=== PATIENT | male | born 1980 ===

== ENCOUNTER 2019-09-15 18:37 | Emergency (ER) | payer BC, SELFPAY ==
[2019-09-15 19:56] VITALS: BP 139/83; PULSE 90; RESP 16; TEMP 37.4; O2SAT 98; BMI 25.1
[2019-09-15 20:43] LABS: Basophils % 0.2 %; Eosinophils # 0.1 10^3/uL (0.0-0.8); Eosinophils % 0.5 %; Hematocrit 41.6 % (42.0-52.0); Hemoglobin 14.5 g/dL (11.7-16.6); Lymphocytes # 1.4 10^3/uL (0.8-4.8); Lymphocytes % 7.1 %; Mean Corpuscular HGB Conc 34.9 g/dL (30.0-36.0); Mean Corpuscular Hemoglobin 30.9 pg (28.0-34.0); Mean Corpuscular Volume 88.5 fL (80-94); Mean Platelet Volume 9.7 fL (7.4-10.4); Monocytes # 0.9 10^3/uL (0.2-0.9); Monocytes % 4.5 %; Neutrophils # 17.5 10^3/uL (1.8-7.7); Nucleated Red Blood Cells % 0 %; Platelet Count 246 10^3/cmm (130-400); Red Cell Distribution Width 14.5 % (12.1-15.1); White Blood Count 20.1 10^3/uL (4.0-10.0)
[2019-09-15 20:59] LABS: Alanine Aminotransferase 14 U/L (0-41); Albumin Level 4.5 g/dL (3.5-5.2); Alkaline Phosphatase 105 IU/L (40-130); Anion Gap 16.6 (5-19); Aspartate Amino Transferase 17 U/L (0-40); Blood Urea Nitrogen 9 mg/dL (6-20); Calcium 9.6 mg/Dl (8.6-10.0); Carbon Dioxide 26 mmol/L (22-29); Chloride 101 mmol/L (98-107); Globulin 2.9 g/dL (1.3-4.6); Glomerular Filtration Rate 74.5 mL/min (90-130); Glucose 102 mg/dL (74-109); Potassium 3.6 mmol/L (3.5-5.1); Sodium 140 mmol/L (136-145); Total Bilirubin 1.4 mg/dL (0.15-1.2); Total Protein 7.4 g/dL (6.6-8.7)
--- NOTE | 2019-09-16 00:42 | W.ED.GENADLT ---
HPI - General Adult General: Chief complaint: General Medical Stated complaint: fever/back pain Time Seen by Provider: 09/16/19 00:42 History of Present Illness: HPI narrative: Patient is a 39-year-old male comes into the ED with fever and right lower back pain. Patient has a past medical history of Crohn's disease. He says the fever with chills started around 11:00am today. the back pain has been occurring for over a week now. He is unsure if these 2 symptoms are related or not, but he says about 15 years ago he had similar back pain may found out he had Colon. He Rates the Back Pain Is 5 Out Of 10. Patient has chronic diarrhea with his Crohn's diagnosis. He's states his diarrhea has been unchanged and is normal. Denies any chest pain, shortness of breath, cough, nasal congestion or drainage, headache, abdominal pain, dysuria, hematuria, blood in the stool, constipation, numbness or tingling or weakness to extremities. Review of Systems General: Reports: 10 or more systems reviewed and unremarkable except in HPI and below PFSH ED PFSH: Statuses (acute, chronic, etc) shown below reflect problem list status as previously entered and may not be historically accurate Medical History Crohn's disease (Acute) Surgical History History of bowel resection (Acute) Social History Smoking and tobacco status: former smoker Physical Exam Narrative: EXAM NARRATIVE: Patient is a 39-year-old male who appears comfortable upon examination. He does not appear in any acute pain or distress. Const: COMMON NORMALS: oriented x3 HENMT: COMMON NORMALS: normocephalic HEAD & SCALP: normocephalic MOUTH: oral and palatal mucosa normal THROAT: posterior oropharynx normal and uvula midline Neck/C-Spine: COMMON NORMALS: supple GENERAL: Yes normal visual inspection Resp: COMMON NORMALS: normal respiratory effort, no retractions, no use of accessory muscles and clear to auscultation bilaterally AUSCULTATION: clear to auscultation bilaterally Cardio: COMMON NORMALS: regular rate, regular rhythm, S1 normal heart sound, S2 normal heart sound, no gallops, no clicks, no murmurs and peripheral pulses 2+ throughout RATE: regular rate RHYTHM: regular rhythm HEART SOUNDS: S1 normal and S2 normal PERIPHERAL PULSES: pulses 2+ throughout GI: COMMON NORMALS: normal to inspection, nondistended, normoactive bowel sounds, soft to palpation, non-tender and no masses PALPATION: Yes soft : COMMON NORMALS: Yes no CVA tenderness BLADDER/KIDNEY EXAM: Yes no CVA tenderness Back/Pelvis: COMMON NORMALS: no CVA tenderness LUMBAR SPINE/LOWER BACK: Yes paraspinal muscle tenderness (mild) Lumbar paraspinal muscle tenderness: right Neuro: COMMON NORMALS: oriented x3 and moves all extremities Course Vital Signs: Vital signs: Vital Signs Temperature 99.4 F 09/15/19 19:56 Pulse Rate 90 09/15/19 19:56 Respiratory Rate 16 09/15/19 19:56 Blood Pressure 139/83 09/15/19 19:56 Pulse Oximetry 98 09/15/19 19:56 [facility] - General Adult Lab Data: Labs: Lab Results 09/15/19 09/15/19 09/16/19 Range/Units 20:20 20:20 01:08 WBC 20.1 H (4.0-10.0) 10^3/ uL RBC 4.70 (4.1-5.3) 10^6/u L Hgb 14.5 (11.7-16.6) g/dL Hct 41.6 L (42.0-52.0) % MCV 88.5 (80-94) fL MCH 30.9 (28.0-34.0) pg MCHC 34.9 (30.0-36.0) g/dL RDW 14.5 (12.1-15.1) % Plt Count 246 (130-400) 10^3/c mm MPV 9.7 (7.4-10.4) fL Neut % (Auto) 87.0 % Lymph % (Auto) 7.1 % [place] % (Auto) 4.5 % Eos % (Auto) 0.5 % Baso % (Auto) 0.2 % Neut # (Auto) 17.5 H (1.8-7.7) 10^3/u L Lymph # (Auto) 1.4 (0.8-4.8) 10^3/u L [place] # (Auto) 0.9 (0.2-0.9) 10^3/u L Eos # (Auto) 0.1 (0.0-0.8) 10^3/u L Baso # (Auto) 0.0 (0.0-0.1) 10^3/u L Nucleated RBC % (a uto) 0 % Nucleated RBCs # 0.0 /100WBC Sodium 140 (136-145) mmol/L Potassium 3.6 (3.5-5.1) mmol/L Chloride 101 (98-107) mmol/L Carbon Dioxide 26 (22-29) mmol/L Anion Gap 16.6 (5-19) BUN 9 (6-20) mg/dL Creatinine 1.1 (0.7-1.2) mg/dL GFR Calculation 74.5 L (90-130) mL/min Glucose 102 (74-109) mg/dL Calcium 9.6 (8.6-10.0) mg/Dl Total Bilirubin 1.4 H (0.15-1.2) mg/dL AST 17 (0-40) U/L ALT 14 (0-41) U/L Alkaline Phosphata se 105 (40-130) IU/L Total Protein 7.4 (6.6-8.7) g/dL Albumin 4.5 (3.5-5.2) g/dL Globulin 2.9 (1.3-4.6) g/dL Urine Color Yellow (Yellow) Urine Appearance Clear (CLEAR) Urine pH 5 (5-7) Ur Specific Gravit y 1.015 (1.005-1.030) Urine Protein Neg (Negative) Urine Glucose (UA) Norm (Normal) Urine Ketones Negative (Negative) Urine Occult Blood Neg (Negative) Urine Nitrate Negative (Negative) Urine Bilirubin Neg (NEGATIVE) Urine Urobilinogen Norm (Negative) mg/dL Ur Leukocyte Savi ase Negative (Negative) Imaging Data^: CT Abd/Pel: Attestation: I personally reviewed and interpreted this imaging study as follows: (I reviewed the radiologist report) Radiologist's impression: [address] [address] [address] Scan Report Signed Patient: Cirilo Zhang Unit #: [id number] : 1980 Age/Sex: 39 / M ADM Date: 09/15/19 Loc: ER Room/Bed: Attending Dr: Ordering Provider/Ordering MD: Rafita Etienne Date of Service: 09/16/19 Procedure(s): CT abdomen pelvis w con* [id number] Accession Number(s): [id number] Report Number: [id number] PROCEDURE INFORMATION: Exam: CT Abdomen And Pelvis With Contrast Exam date and time: 09/16/2019 1:29 AM Age: 39 years old Clinical indication: Fever; Abdominal pain; Acute; Prior surgery; Surgery date: 6+ months; Surgery type: Small bowel resection; Patient HX: HX Crohn's; Additional info: Back pain and fever TECHNIQUE: Imaging protocol: Computed tomography of the abdomen and pelvis with intravenous contrast. Total DLP: 670.63 mGy-cm Radiation optimization: All CT scans at this facility use at least one of these dose optimization techniques: automated exposure control; mA and/or kV adjustment per patient size (includes targeted exams where dose is matched to clinical indication); or iterative reconstruction. Contrast material: OMNI 300; Contrast volume: 95 ml; Contrast route: 20G; COMPARISON: No relevant prior studies available. FINDINGS: Visualized portions of the lung bases are clear. The liver, gallbladder, spleen, pancreas, adrenal glands, and right kidney are unremarkable. Tiny hypodensity in the left kidney upper pole, statistically likely to represent a cyst. The appendix is not identified and may be surgically absent. No bowel obstruction identified. There is a short segment of marked wall thickening of the distal sigmoid colon (series 2, image 69). This is consistent with inflammatory change/colitis (such as from infection or inflammatory bowel disease). No free intraperitoneal air or fluid identified. The bladder is unremarkable. The abdominal aorta is nonaneurysmal. Visualized bones are unremarkable. CT/CT abdomen pelvis w con* [id number] IMPRESSION: 1. There is a short segment of marked wall thickening of the distal sigmoid colon. This is consistent with inflammatory change/colitis (such as from infection or inflammatory bowel disease). Radiation Dose CTDIVOL = (mGy): DLP = 670.63 (mGy-cm) Dictated By: Sloan Oquendo MD Signed By: Sloan Oquendo MD Signed Date/Time: 09/16/19 0332 DD/ 0 Discharge Plan Discharge Patient Disposition: Home, Self-Care Clinical Impression: Colitis Crohn's disease Qualifiers: Gastrointestinal tract location: large intestine Digestive disease complication type: without complication Qualified Code(s): K50.10 - Crohn's disease of large intestine without complications Condition: Stable Prescriptions: New Flagyl 500 mg tablet 500 mg PO BID 10 Days Qty: 20 RF: 0 Discharge Orders: Discharge Order (Routine); Ordered 09/16/19 Ordered By: Rafita Etienne Referrals: Og Erickson MD [Family Provider] - Discharge Diet: Regular Discharge Activity: Resume usual activity Activity Restrictions/Additional Instructions: Follow-up with your primary care doctor in 5-7 days for reevaluation. I am going to send you home with a prescription for an antibiotic. You can wait to start taking antibiotic for 24 hours to see if you develop a fever or other GI symptoms. start taking it if you get a fever and have any new GI symptoms. Take Tylenol or ibuprofen for fever and for lower back pain. Drink plenty of fluids. Return to ED if worsening of symptoms and persistent fever with antibiotic treatment. Discharge Date/Time: 09/16/19 04:05 Coding Level of Care Code ED Brewery Representative for Thaddeus Connolly
[2019-09-16 01:17] LABS: Add Urine Microscopic? NO
--- NOTE | 2019-09-16 01:26 | CTR_ITS ---
PROCEDURE INFORMATION: Exam: CT Abdomen And Pelvis With Contrast Exam date and time: 09/16/2019 1:29 AM Age: 39 years old Clinical indication: Fever; Abdominal pain; Acute; Prior surgery; Surgery date: 6+ months; Surgery type: Small bowel resection; Patient HX: HX Crohn's; Additional info: Back pain and fever TECHNIQUE: Imaging protocol: Computed tomography of the abdomen and pelvis with intravenous contrast. Total DLP: 670.63 mGy-cm Radiation optimization: All CT scans at this facility use at least one of these dose optimization techniques: automated exposure control; mA and/or kV adjustment per patient size (includes targeted exams where dose is matched to clinical indication); or iterative reconstruction. Contrast material: OMNI 300; Contrast volume: 95 ml; Contrast route: 20G; COMPARISON: No relevant prior studies available. FINDINGS: Visualized portions of the lung bases are clear. The liver, gallbladder, spleen, pancreas, adrenal glands, and right kidney are unremarkable. Tiny hypodensity in the left kidney upper pole, statistically likely to represent a cyst. The appendix is not identified and may be surgically absent. No bowel obstruction identified. There is a short segment of marked wall thickening of the distal sigmoid colon (series 2, image 69). This is consistent with inflammatory change/colitis (such as from infection or inflammatory bowel disease). No free intraperitoneal air or fluid identified. The bladder is unremarkable. The abdominal aorta is nonaneurysmal. Visualized bones are unremarkable. CT/CT abdomen pelvis w con* [id number] IMPRESSION: 1. There is a short segment of marked wall thickening of the distal sigmoid colon. This is consistent with inflammatory change/colitis (such as from infection or inflammatory bowel disease). Radiation Dose CTDIVOL = (mGy): DLP = 670.63 (mGy-cm)
[2019-09-16 01:31] LABS: Bilirubin Urine Neg (NEGATIVE); Blood Urine Neg (Negative); Glucose Urine UA Norm (Normal); Ketones Urine Negative (Negative); Leukocyte Esterase Urine Negative (Negative); Nitrate Urine Negative (Negative); Protein Urine Neg (Negative); Specific Gravity, Urine 1.015 (1.005-1.030); Urine Appearance Clear (CLEAR); Urine Color Yellow (Yellow); Urobilinogen Urine Norm (Negative); pH Urine 5 (5-7)
[2019-09-16] MEDS: sodium chloride 0.9% 1,000 ML 999 ML IV (01:45)
[2019-09-16] MEDS: ketorolac 30 mg/mL INJ IVP (01:45)
== END 2019-09-16 04:05 | disposition home or self-care (01) ==
PROVIDERS: Emergency Medicine; Emergency Provider Physician Assistant; Family Provider Family Medicine
DX: K50.10 Crohn's disease of large intestine without complications (principal); K52.9 Noninfective gastroenteritis and colitis, unspecified; Z87.891 Personal history of nicotine dependence
CPT/HCPCS: 36415; 74177; 80053; 81003; 85025; 87040; 96360; 96374; 99281; J1885; J7030

== ENCOUNTER → 2020-06-05 16:55 | Outpatient (BNVA) | payer BC, SELFPAY | PROVIDERS: Family Provider Family Medicine; Visit Provider Family Medicine | DX: Z20.828 Contact with and (suspected) exposure to other viral communicable diseases (principal) | CPT/HCPCS: 87635 ==

== ENCOUNTER → 2022-06-19 14:33 | Outpatient (BNVA) | payer OTHER, SELFPAY | PROVIDERS: Family Provider Family Medicine; PCP Clinical Nurse Specialist Adult Health; Visit Provider Clinical Nurse Specialist Adult Health | DX: J02.0 Streptococcal pharyngitis (principal) | CPT/HCPCS: 87880 ==

== ENCOUNTER 2025-03-04 21:27 | Emergency (ER) | payer OTHER, SELFPAY ==
--- OUTSIDE RECORDS SUMMARY | 2025-02-21 05:40 | XMS_ITS ---
Author Organization [facility] Address [address] [place] [address] Care Team Providers Care Developer Advisor Name Role Phone Nakul Guardado Primary Care Provider REASON FOR VISIT 4 WEEK F/U R shoulder pain and palpitations, Discussed recent Holter with PVCs Encounters Encounter Location Date Provider Diagnosis [facility] [address] [place] [address] 02/21/2025 Nakul Guardado Plan Of Treatment Next Appt Details Provider Name:Kelvin Li , 03/08/2025 10:30:00 AM, [address], [place], [address], Provider Name:Nkaul thurman, 03/28/2025 10:30:00 AM, [address], [place], [address], Provider Name:Nakul thurman, 09/19/2025 01:00:00 PM, [address], [place], [address], Progress Notes * MANUELA GIPSON PDOB:1980 ( 44 yo M)Acc No.[id number]:02/21/2025 Patient: Eva MANUELA PETERS Provider: Oracio Guardado MD :1980 A ge:44 Y S ex:Male Date:02/21/2025 Address:[facility] [address], [place] Subjective: * Chief Complaints: * 1 . 4 WEEK F/U R shoulder pain and palpitations. 2. Discussed recent Holter with PVCs. 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
--- OUTSIDE RECORDS SUMMARY | 2025-03-04 21:32 | XMS_ITS | Clinical Summary ---
Author Organization [facility] Address [address] [place] [address] Care Team Providers Care Label Coder Name Role Phone Og Erickson MD Primary Care Provider Allergies Active Allergy Reactions Criticality Noted Date Comments Infliximab Other (See Comments) 09/07/2018 Joint pain-serum sickness Medications losartan (COZAAR) 25 mg tablet Take 25 mg by mouth daily. 12/04/2021 Active hydroCHLOROthiaz juju 25 mg tablet 11/26/2021 Ac tive amLODIPine (NORVASC) 10 mg tablet 11/26/2021 Active colestipoL (COLESTID) 1 gram tablet Take 1 Tablet (1,000 mg) by mouth daily. 60 Tablet 3 10/22/2022 Active azaTHIOprine (IMURAN) 50 mg tabletIndication s:Crohn's disease of both small and large intestine with rectal bleeding (CMS/HCC),Immuno suppression Take 1 Tablet (50 mg) by mouth daily. 30 Tablet 3 10/22/2022 Active ustekinumab (Stelara) 90 mg/mL Syringe INJECT 1 ML UNDER THE SKIN EVERY 8 WEEKS 2 Each 4 12/03/2022 Active Active Problems Problem Noted Date Diagnosed Date Crohn's disease of small intestine with other co mplication 11/13/2018 Social History Tobacco Use Types Packs/Day Years Used Date Smoking Tobacco: Former Smokeless Tobacco: Never Tobacco Cessation:Counseling Given: No Sex and Gender Information Value Date Recorded Sex Assigned at Not on file Legal Sex Male 6:18 AM MOUNTER SMOKING PIPE Gender Identity Not on file Sexual Orientation Not on file Last Filed Vital Signs Vital Sign Reading Time Taken Comments Blood Pressure 121/75 04/08/2022 2:00 PM CDT Pulse 70 04/08/2022 2:00 PM CDT Temperature 36.6 C (97.9 F) 08/12/2019 11:18 AM MOUNTER SMOKING PIPE Respiratory Rate 15 02/27/2022 3:31 PM CDT Oxygen Saturation 98% 02/27/2022 3:31 PM CDT Inhaled Oxygen Concentration - - Weight 77.6 kg (171 lb) 04/08/2022 2:00 PM CDT Height 175.3 cm (5' 9 ) 04/08/2022 2:00 PM CDT Body Mass Index 25.25 04/08/2022 2:00 PM CDT Plan of Treatment Health Maintenance Due Date Last Done Comments HEPATITIS B VACCINES (1 of 3 - 19+ 3-dose series) 1999 INFLUENZA VACCINE (#1) 2025 7, 07/11/2015, 06/06/2014 DTAP/TDAP/TD VACCINES (2 - Td or Tdap) 08/04/2027 08/04/2017 HPV VACCINES Aged Out No longer eligi ble based on patient's age to complete this topic Insurance OPEN ACCESS HMO * Guarantor: CIRILO GIPSON Account Type Relation to Patient Date of Phone Billing Address Personal/Family [address] [place] [address] RX [facility] Commercial Advance Directives For more information, please contact: [phone] * Full Code (Latest Code Status on File) Date Activated Date Inactivated Comments 02/27/2022 2:03 PM 02/27/2022 5:40 PM Care Teams Label Coder Relationship Specialty [place] [address] [place] [phone] PCP - General 11/09/20
--- OUTSIDE RECORDS SUMMARY | 2025-03-04 21:32 | XMS_ITS | Clinical Summary ---
Author Organization [facility] Address [address] [place] [address] Care Team Providers Care Turbo Generator Oiler Name Role Phone Og Erickson MD Primary Care Provider [phone] Allergies Active Allergy Reactions Criticality Noted Date Comments Infliximab Other (See Comments) 09/07/2018 Joint pain-serum sickness Medications folic acid (FOLVITE) 1 mg tablet Take 1 mg by mouth daily. Active lisinopril (PRINIVIL) 40 mg tablet . 01/04/2019 Active ustekinumab (Stelara) 90 mg/mL Syringe INJECT 1 ML UNDER THE SKIN EVERY 8 WEEKS 2 Each 4 11/06/2020 Active azaTHIOprine (IMURAN) 50 mg tabletIndication s:Crohn's disease of both small and large intestine with rectal bleeding (CMS/HCC),Immuno suppression Take 1 Tablet (50 mg) by mouth daily. 90 Tablet 3 11/14/2020 Active sucralfate (CARAFATE) 1 gram tabletIndication s:Nausea,Crohn's disease of both small and large intestine with rectal bleeding (CMS/HCC),Immuno suppression Take 1 Tablet (1 Gram) by mouth 4 times daily as needed for Nausea. 120 Tablet 6 11/14/2020 Active Active Problems Problem Noted Date Diagnosed Date Crohn's disease of small intestine with other co mplication 11/13/2018 Social History Tobacco Use Types Packs/Day Years Used Date Smoking Tobacco: Former Smokeless Tobacco: Never Tobacco Cessation:Counseling Given: No Sex and Gender Information Value Date Recorded Sex Assigned at Not on file Legal Sex Male 2:24 PM NEGATIVE RESTORER Gender Identity Not on file Sexual Orientation Not on file Last Filed Vital Signs Vital Sign Reading Time Taken Comments Blood Pressure 124/63 11/14/2020 11:09 AM CDT Pulse 68 11/14/2020 11:09 AM CDT Temperature 36.6 C (97.9 F) 08/12/2019 11:18 AM NEGATIVE RESTORER Respiratory Rate 16 08/12/2019 11:18 AM NEGATIVE RESTORER Oxygen Saturation 99% 08/12/2019 11:18 AM NEGATIVE RESTORER Inhaled Oxygen Concentration - - Weight 83.5 kg (184 lb) 11/14/2020 11:09 AM CDT Height 175.3 cm (5' 9 ) 11/14/2020 11:09 AM CDT Body Mass Index 27.17 11/14/2020 11:09 AM CDT Plan of Treatment Health Maintenance Due Date Last Done Comments HEPATITIS B VACCINES (1 of 3 - 19+ 3-dose series) 1999 INFLUENZA VACCINE (#1) 2024 9, 08/04/2017, 07/11/2015, Additional history exists DTAP/TDAP/TD VACCINES (2 - Td or Tdap) 08/04/2027 08/04/2017 HPV VACCINES Aged Out No longer eligi ble based on patient's age to complete this topic Insurance [employer] [facility] Commercial Advance Directives For more information, please contact: [phone] * Full Code (Latest Code Status on File) Date Activated Date Inactivated Comments 02/25/2019 2:37 PM 02/25/2019 5:44 PM Care Teams Turbo Generator Oiler Relationship Specialty Start Date End Date Og Erickson MD [address] [place] [address] PCP - General Family Practice 02/22/19
--- OUTSIDE RECORDS SUMMARY | 2025-03-04 21:32 | XMS_ITS | Encounter Summary ---
Author Organization [facility] [employer] Address [address] [place] [address] Care Team Providers Care Video Game Engineer Name Role Phone Og Erickson MD Primary Care Provider + [phone] Encounter Details Date Type Department Care Team (Late st Contact Info) Description 07/27/2019 Specialty Pharmacy [facility] [place] [address] [id number] Taina Andino, PHARMACIST [address] [place] [address] [phone] Social History Tobacco Use Types Packs/Day Years Used Date Smoking Tobacco: Former Smokeless Tobacco: Never Sex and Gender Information Value Date Recorded Sex Assigned at Not on file Legal Sex Male 2:24 PM INSTRUCTIONAL SUPPORT TECHNICIAN Gender Identity Not on file Sexual Orientation Not on file documented as of this encounter Plan of Treatment Not on file documented as of this encounter Visit Diagnoses Not on filedocumented in this encounter Care Teams Video Game Engineer Relationship Specialty Start Date End Date Og Erickson MD [address] [place] [phone] PCP - General Family Practice 02/22/19 documented as of this encounter
--- OUTSIDE RECORDS SUMMARY | 2025-03-04 21:32 | XMS_ITS | Patient Health Record ---
Author Organization [facility] Address [address] [place] [address] Care Team Providers Care Billposter Name Role Phone Nakul Guardado Primary Care Provider Kelvin Li Unavailable [phone] Breana oJhnson Unavailable [phone] Allergies Allergen (clinical drug ingredient) Drug/Non Drug Allergy documented on EMR Reaction Allergy Type Onset Date Status Remicade Unknown Drug Allergy Active Results Component Value Reference Range Notes Shoulder Min 3V Right-[id number] Reviewed date:01/21/2025 02:31:53 PM Interpretation: Performing Lab: Notes/Report: hfk=[id number]&org=iSite CBC w\ Auto Diff [id number] Reviewed date:04/29/2024 03:34:13 PM Interpretation: Performing Lab: Notes/Report: Diagnosis Description: Crohn's disease of small intestine without complications WBC 7.2 4.5-11.0 X10'3 RBC 4.80 4.50-5.90 X10'6 Hgb 15.0 13.5-17.5 G/DL Hct 41.0 41.0-53.0 % MCV 85.4 80.0-100.0 FL MCH 31.3 27.0-31.0 PG MCHC 36.6 31.0-37.0 G/DL Platelet 203 150-400 X10'3 RDW-SD 39.3 35.0-49.0 FL RDW-CV 12.8 12.2-15.6 % MPV 9.6 9.2-12.0 FL Neutro Auto% 48.6 40.0-70.0 % Lymph Auto% 24.2 22.0-44.0 % Swain Auto% 11.8 3.0-7.0 % Eos Auto% 14.3 2.0-4.0 % Baso Auto% 0.8 0.0-1.0 % Imm Gran% .3 .0-.4 % Neutro Abs 3.51 .80-7.70 Absolute Neutrophil Count 3510 Lymph Abs 1.75 .10-4.10 Swain Abs .85 .20-1.00 Eos Abs 1.03 .00-.40 Baso Abs .06 .00-.20 Imm Gran Abs .02 .00-.10 NRBC# .00 .00-.20 NRBC% .00 .00-.20 /100 int act WBC's Comprehensive Metabolic Pane l (CMP) [id number] Reviewed date:04/29/2024 03:34:13 PM Interpretation: Performing Lab: Notes/Report: Diagnosis Description: Crohn's disease of small intestine without complications Glucose Serum 92 71-110 MG/DL Testing perfor med at [facility], [address] [place] [address] [place] [address]. CLIA ID#: [id number] BUN 19 7-21 MG/DL Creat 1.24 .57-1.17 MG/DL K-ghksns-j-benzoquinone imine (NAPQI) is a metabolite of acetaminophen, NAPQI concentrations of apparoximately 10 mg/L correlation to toxic levels of acetaminophen demonstrates a greater than or equil to 10% change in results. NAPQI concentrations greater than this may lead to falsely depressed results for patient samples. Use of this assay is not recommended for patients undergoing treatment with phenindione, due to the potential for falsely depressed results. GFR 73.8 Calculation per formed from GFR calculator provided by the [employer]. Glomerular Filtration rate(GRF) is the best overall index of kidney function. Normal GFR varies according to age,sex, body size, and declines with age. The National Kid[employer] Foundation recommends using the CKD-EPI Creatinine Equation(2020) to estimate GFR. BUN/Creat Ratio 15.3 12.0-20.0 % Total Protein 6.8 5.8-8.0 G/DL Albumin 4.5 3.2-4.8 G/DL Globulin 2.3 2.3-3.5 G/DL Alb/Glob 2.0 0.8-2.2 Calcium 9.6 8.7-10.4 MG/DL Sodium 139 136-145 MMOL/L Potassium 3.7 3.5-5.1 MMOL/L Chloride 103 98-107 MMOL/L CO2 29.2 20.0-31.0 MMOL/L Anion Gap 10 5-15 Alk Phos 74 46-116 Bili Total 1.0 .3-1.2 MG/DL Use of this ass ay is not recommended for patients undergoing treatment with eltrombopag due to the potential for falsely elevated results. AST/SGOT 22 15-37 UNIT/L ALT/SGPT 36 12-78 UNIT/L Osmo Serum,Calculated 290 280-300 MOSM/KG CBC w\ Auto Diff [id number] Reviewed date:02/16/2025 09:50:51 AM Interpretation: Performing Lab: Notes/Report: Diagnosis Description: Crohn's disease of both small and large intestine with unspecified complications WBC 6.8 4.5-11.0 X10'3 RBC 5.18 4.50-5.90 X10'6 Hgb 15.9 13.5-17.5 G/DL Hct 43.9 41.0-53.0 % MCV 84.7 80.0-100.0 FL MCH 30.7 27.0-31.0 PG MCHC 36.2 31.0-37.0 G/DL Platelet 225 150-400 X10'3 RDW-SD 36.3 35.0-49.0 FL RDW-CV 11.8 12.2-15.6 % MPV 9.7 9.2-12.0 FL Neutro Auto% 58.8 40.0-70.0 % Lymph Auto% 25.9 22.0-44.0 % Swain Auto% 10.7 3.0-7.0 % Eos Auto% 3.7 2.0-4.0 % Baso Auto% 0.6 0.0-1.0 % Imm Gran% .3 .0-.4 % Neutro Abs 4.02 .80-7.70 Absolute Neutrophil Count 4020 Lymph Abs 1.77 .10-4.10 Swain Abs .73 .20-1.00 Eos Abs .25 .00-.40 Baso Abs .04 .00-.20 Imm Gran Abs .02 .00-.10 NRBC# .00 .00-.20 NRBC% .00 .00-.20 /100 int act WBC's Comprehensive Metabolic Pane l (CMP) [id number] Reviewed date:02/16/2025 09:50:55 AM Interpretation: Performing Lab: Notes/Report: Diagnosis Description: Crohn's disease of both small and large intestine with unspecified complications Glucose Serum 92 71-110 MG/DL Testing perfor med at [facility], [address] [place] [address] [place] [address]. CLIA ID#: [id number] BUN 18 7-21 MG/DL Creat 1.09 .57-1.17 MG/DL D-wzgyii-c-benzoquinone imine (NAPQI) is a metabolite of acetaminophen, NAPQI concentrations of apparoximately 10 mg/L correlation to toxic levels of acetaminophen demonstrates a greater than or equil to 10% change in results. NAPQI concentrations greater than this may lead to falsely depressed results for patient samples. Use of this assay is not recommended for patients undergoing treatment with phenindione, due to the potential for falsely depressed results. GFR 85.5 Calculation per formed from GFR calculator provided by the National [employer]. Glomerular Filtration rate(GRF) is the best overall index of kidney function. Normal GFR varies according to age,sex, body size, and declines with age. The National Kid[employer] Foundation recommends using the CKD-EPI Creatinine Equation(2020) to estimate GFR. BUN/Creat Ratio 16.5 12.0-20.0 % Total Protein 7.4 5.8-8.0 G/DL Albumin 5.2 3.2-4.8 G/DL Globulin 2.2 2.3-3.5 G/DL Alb/Glob 2.4 0.8-2.2 Calcium 9.9 8.7-10.4 MG/DL Sodium 138 136-145 MMOL/L Potassium 3.6 3.5-5.1 MMOL/L Chloride 100 98-107 MMOL/L CO2 29.5 20.0-31.0 MMOL/L Anion Gap 12 5-15 Alk Phos 77 46-116 Bili Total 1.3 .3-1.2 MG/DL Use of this ass ay is not recommended for patients undergoing treatment with eltrombopag due to the potential for falsely elevated results. AST/SGOT 22 15-37 UNIT/L ALT/SGPT 35 12-78 UNIT/L Osmo Serum,Calculated 287 280-300 MOSM/KG IH Shoulder Min 3V Right - 7 3030 Reviewed date:01/25/2025 08:46:17 AM Interpretation: Performing Lab: Notes/Report: See Below For Report Shoulder Min 3V Right Comprehensive Metabolic Pane l (CMP) [id number] Reviewed date:11/20/2024 03:19:24 PM Interpretation: Performing Lab: Notes/Report: Diagnosis Description: Crohn's disease of both small and large intestine with unspecified complications Glucose Serum 126 71-110 MG/DL Testing perfor med at [facility], [address] [place] [address] [place] [address]. CLIA ID#: [id number] BUN 15 7-21 MG/DL Creat 1.02 .57-1.17 MG/DL O-rneypj-m-benzoquinone imine (NAPQI) is a metabolite of acetaminophen, NAPQI concentrations of apparoximately 10 mg/L correlation to toxic levels of acetaminophen demonstrates a greater than or equil to 10% change in results. NAPQI concentrations greater than this may lead to falsely depressed results for patient samples. Use of this assay is not recommended for patients undergoing treatment with phenindione, due to the potential for falsely depressed results. GFR 92.6 Calculation per formed from GFR calculator provided by the National [employer]. Glomerular Filtration rate(GRF) is the best overall index of kidney function. Normal GFR varies according to age,sex, body size, and declines with age. The National Kid[employer] Foundation recommends using the CKD-EPI Creatinine Equation(2020) to estimate GFR. BUN/Creat Ratio 14.7 12.0-20.0 % Total Protein 7.2 5.8-8.0 G/DL Albumin 4.9 3.2-4.8 G/DL Globulin 2.3 2.3-3.5 G/DL Alb/Glob 2.1 0.8-2.2 Calcium 9.7 8.7-10.4 MG/DL Sodium 138 136-145 MMOL/L Potassium 3.3 3.5-5.1 MMOL/L Chloride 98 98-107 MMOL/L CO2 28.1 20.0-31.0 MMOL/L Anion Gap 15 5-15 Alk Phos 73 46-116 Bili Total 1.0 .3-1.2 MG/DL Use of this ass ay is not recommended for patients undergoing treatment with eltrombopag due to the potential for falsely elevated results. AST/SGOT 30 15-37 UNIT/L ALT/SGPT 36 12-78 UNIT/L Osmo Serum,Calculated 288 280-300 MOSM/KG CBC w\ Auto Diff [id number] Reviewed date:11/20/2024 03:19:20 PM Interpretation: Performing Lab: Notes/Report: Diagnosis Description: Crohn's disease of both small and large intestine with unspecified complications WBC 6.4 4.5-11.0 X10'3 RBC 5.08 4.50-5.90 X10'6 Hgb 15.9 13.5-17.5 G/DL Hct 42.9 41.0-53.0 % MCV 84.4 80.0-100.0 FL MCH 31.3 27.0-31.0 PG MCHC 37.1 31.0-37.0 G/DL Platelet 206 150-400 X10'3 RDW-SD 38.4 35.0-49.0 FL RDW-CV 12.6 12.2-15.6 % MPV 9.7 9.2-12.0 FL Neutro Auto% 59.8 40.0-70.0 % Lymph Auto% 22.7 22.0-44.0 % Swain Auto% 8.4 3.0-7.0 % Eos Auto% 8.2 2.0-4.0 % Baso Auto% 0.6 0.0-1.0 % Imm Gran% .3 .0-.4 % Neutro Abs 3.84 .80-7.70 Absolute Neutrophil Count 3840 Lymph Abs 1.46 .10-4.10 Swain Abs .54 .20-1.00 Eos Abs .53 .00-.40 Baso Abs .04 .00-.20 Imm Gran Abs .02 .00-.10 NRBC# .00 .00-.20 NRBC% .00 .00-.20 /100 int act WBC's Comprehensive Metabolic Pane l (CMP) [id number] Reviewed date:08/09/2024 01:06:05 PM Interpretation: Performing Lab: Notes/Report: Diagnosis Description: Crohn's disease of small intestine without complications Glucose Serum 90 71-110 MG/DL Testing [facility] at [address] [place] [address]. CLIA ID#: [id number] BUN 18 7-21 MG/DL Creat 1.12 .57-1.17 MG/DL H-nwkfgf-k-benzoquinone imine (NAPQI) is a metabolite of acetaminophen, NAPQI concentrations of apparoximately 10 mg/L correlation to toxic levels of acetaminophen demonstrates a greater than or equil to 10% change in results. NAPQI concentrations greater than this may lead to falsely depressed results for patient samples. Use of this assay is not recommended for patients undergoing treatment with phenindione, due to the potential for falsely depressed results. GFR 83.5 Calculation per formed from GFR calculator provided by the National [employer]. Glomerular Filtration rate(GRF) is the best overall index of kidney function. Normal GFR varies according to age,sex, body size, and declines with age. The National Kidney Foundation recommends using the CKD-EPI Creatinine Equation(2020) to estimate GFR. BUN/Creat Ratio 16.1 12.0-20.0 % Total Protein 6.9 5.8-8.0 G/DL Albumin 4.7 3.2-4.8 G/DL Globulin 2.2 2.3-3.5 G/DL Alb/Glob 2.1 0.8-2.2 Calcium 10.1 8.7-10.4 MG/DL Sodium 140 136-145 MMOL/L Potassium 3.9 3.5-5.1 MMOL/L Chloride 104 98-107 MMOL/L CO2 25.8 20.0-31.0 MMOL/L Anion Gap 14 5-15 Alk Phos 76 46-116 Bili Total .9 .3-1.2 MG/DL Use of this ass ay is not recommended for patients undergoing treatment with eltrombopag due to the potential for falsely elevated results. AST/SGOT 26 15-37 UNIT/L ALT/SGPT 43 12-78 UNIT/L Osmo Serum,Calculated 292 280-300 MOSM/KG CBC w\ Auto Diff [id number] Reviewed date:08/09/2024 01:06:00 PM Interpretation: Performing Lab: Notes/Report: Diagnosis Description: Crohn's disease of small intestine without complications WBC 6.9 4.5-11.0 X10'3 RBC 5.03 4.50-5.90 X10'6 Hgb 15.6 13.5-17.5 G/DL Hct 42.9 41.0-53.0 % MCV 85.3 80.0-100.0 FL MCH 31.0 27.0-31.0 PG MCHC 36.4 31.0-37.0 G/DL Platelet 218 150-400 X10'3 RDW-SD 38.0 35.0-49.0 FL RDW-CV 12.3 12.2-15.6 % MPV 9.7 9.2-12.0 FL Neutro Auto% 51.6 40.0-70.0 % Lymph Auto% 26.2 22.0-44.0 % Swain Auto% 11.6 3.0-7.0 % Eos Auto% 9.7 2.0-4.0 % Baso Auto% 0.6 0.0-1.0 % Imm Gran% .3 .0-.4 % Neutro Abs 3.58 .80-7.70 Absolute Neutrophil Count 3580 Lymph Abs 1.81 .10-4.10 Swain Abs .80 .20-1.00 Eos Abs .67 .00-.40 Baso Abs .04 .00-.20 Imm Gran Abs .02 .00-.10 NRBC# .00 .00-.20 NRBC% .00 .00-.20 /100 int act WBC's T3 Free [id number] Reviewed date:01/21/2025 02:31:53 PM Interpretation: Performing Lab: Notes/Report: Diagnosis Description: Other specified hypothyroidism Free T3 3.2 2.3-4.2 pg/mL T4 [id number] Reviewed date:01/21/2025 02:31:53 PM Interpretation: Performing Lab: Notes/Report: Diagnosis Description: Other specified hypothyroidism Free T4 1.21 0.89-1.76 NG/DL Thyroid Stimulating Hormone (TSH) 03432 Reviewed date:01/21/2025 02:31:53 PM Interpretation: Performing Lab: Notes/Report: Diagnosis Description: Other specified hypothyroidism TSH 5.543 .358-3.740 MlU/ML Reason For Referral Reason Referral to PT in [facility] Diagnosis 1 Pain in right should er (M25.511) Referral Organization [facility] Referring Provider First Name Nakul Referring Provider Last Name Geo Referring Provider Speciality Family [facility] icine Referral Priority Routine Medications Medication SIG (Take, Route, Frequency, Duration) Notes Start Date End Date Status hydroCHLOROthiazide 25 MG 1 tablet in th e morning Oral Once a day for 90 days Active Omeprazole 10 MG 1 capsule 1/2 to 1 hour before morning meal Orally Once a day Active Losartan Potassium 25 MG 1 tablet Orally Once a day for 90 days Active Stelara 90 MG/ML Inject 1 prefilled syringe Subcutaneous every 8 weeks for 56 days 06/08/2024 2025 Active Psyllium Husk - as directed Orally 5 capsules twice a day Active Polymyxin B-Trimethoprim 93261-6.1 UNIT/ML 1 drop into affected eye Ophthalmic twice a day Not-Taking Vitamin D3 25 MCG (1000 UT) 1 tablet Ora lly Once a day Active Steqeyma 90 MG/ML as directed Subcutaneous every 8 weeks 01/26/2025 Active azaTHIOprine 50 MG 1 tablet PO daily for 90 days Active amLODIPine Besylate 10 MG 1 tablet Oral Once a day for 90 days Active Stelara 90 MG/ML as directed Subcutaneous Every 8 weeks for 56 days Not-Taking Colestipol HCl 1 GM 2 tablets Orally Once a day for 90 Active Claritin 10 MG 1 tablet Orally Once a day Active Social History Tobacco Use: Social History Observation Description Date Details (start date - stop date) Former Smoker NA - NA xTobacco Use/Smoking Question Answer Notes Are you a nonsmoker PHQ-9 Question Answer Notes Little interest or pleasure in doing things Not at all Feeling down, depressed, or hopeless Not at all Trouble falling or staying asleep, or sleeping t oo much Not at all Feeling tired or having little energy Not at all Poor appetite or overeating Not at all Feeling bad about yourself, or that you are a failure, or have let yourself or your family down Not at all Trouble concentrating on thi ngs, such as reading the newspaper or watching television Not at all Moving or speaking so slowly that other people could have noticed. Or the opposite ? being so fidgety or restless that you have been moving around a lot more than usual Not at all Thoughts that you would be b issa off , or of hurting yourself in some way Not at all Total Score 0 Tobacco Control (Standard) Question Answer Notes Tobacco use: Former smoker How long has it been since you last smoked? 5-10 years AUDIT-C (Standard) Question Answer Notes Did you have a drink contain ing alcohol in the past year? Yes How often did you have six o r more drinks on one occasion in the past year? 2 to 4 times a month (2 points) How many drinks did you have on a typical day when you were drinking in the past year? 1 or 2 drinks (0 point) How often did you have a dri nk containing alcohol in the past year? 2 to 4 times a month (2 points) Points 4 Interpretation Positive Section Notes: quit 10 yrs ago. vaped 5-6 yrs ago. quit 10 yrs ago. vaped 5-6 yrs ago. Problems Problem Type SNOMED Code ICD Code Onset Dates Problem Status W/U Status Risk Notes Problem Crohn's disease of small AND large intestines (33264687) Crohn's disease of both small and large intestine with unspecified complications (K50.819) Active confirmed Problem 80379423 Essential hypertension (I10) Active confirmed Problem 429115982 Seasonal allergies (J30.2) Active confirmed Problem 44037169 Crohn's disease of ileum without complication (K50.00) Active confirmed Problem 87514537 Subclinical hypothyroidism (E03.8) Active confirmed Problem [id number] Obesity (BMI 30.0-34.9) (E66.811) Active confirmed Vital Signs Heart Rate 77 /min 01/21/2025 Temperature 96.3 degrees Fahrenheit 01/21/2025 Blood pressure diastolic 66 mm Hg 01/21/2025 Oximetry 95 % 01/21/2025 Height-cm 162.56 cm 01/21/2025 Weight-kg 90.27 kg 01/21/2025 Height 64 in 01/21/2025 Blood pressure systolic 116 mm Hg 01/21/2025 Weight 199 lbs 01/21/2025 BMI 34.15 kg/m2 01/21/2025 Encounters Encounter Location Date Provider Diagnosis [facility] [address] [place] [address] 03/09/2024 Kelvin Li Crohn's disease of ileum without complication K50.00 [facility] [address] [place] [address] 09/13/2024 Nakul Guardado Wellness examination Z00.00 ; Seasonal allergies J30.2 ; Essential hypertension I10 ; Obesity (BMI 30.0-34.9) E66.811 ; Crohn's disease of both small and large intestine with unspecified complications K50.819 ; Crohn's disease of ileum without complication K50.00 and Acute right ankle pain M25.571 [facility] [address] [place] [address] 01/21/2025 Nakul Guardado Pain in right shoulder M25.511 ; Essential hypertension I10 ; Subclinical hypothyroidism E03.8 and Palpitations R00.2 [facility] [address] [place] [address] 04/26/2024 Breana Acklin Crohn's disease of ileum without complication K50.00 [facility] [address] [place] [address] 04/29/2024 Breana Acklin Crohn's disease of ileum without complication K50.00 [facility] [address] [place] [address] 06/08/2024 Kelvin Li [facility] [address] [place] [address] 08/02/2024 Kelvin Li Crohn's disease of both small and large intestine with unspecified complications K50.819 [facility] [address] [place] [address] 08/19/2024 Kelvin Li [facility] [address] [place] [address] 08/27/2024 Nakul [facility] [address] [place] [address] 11/17/2024 Kelvin Li Crohn's disease of both small and large intestine with unspecified complications K50.819 [facility] [address] [place] [address] 01/12/2025 Nakul Guardado [facility] [address] [place] [address] 01/13/2025 Nakul [facility] [address] [place] [address] 01/26/2025 Kelvin Li Crohn's disease of both small and large intestine with unspecified complications K50.819 [facility] [address] [place] [address] 02/15/2025 Kelvin Li Crohn's disease of both small and large intestine with unspecified complications K50.819 Assessments Encounter Date Diagnosis (ICD Code) Assessment Notes Treatment Notes Treatment Clinical Notes Section Notes 04/26/2024 Crohn's disease of ileum without complication (ICD-10 - K50.00) 04/29/2024 Crohn's disease of ileum without complication (ICD-10 - K50.00) 01/26/2025 Crohn's disease of both small and large intestine with unspecified complications (ICD-10 - K50.819) 02/15/2025 Crohn's disease of both small and large intestine with unspecified complications (ICD-10 - K50.819) 11/17/2024 Crohn's disease of both small and large intestine with unspecified complications (ICD-10 - K50.819) 01/21/2025 Pain in right shoulder (ICD-10 - M25.511) He has been experiencing pain in his shoulder for a few months. ROM is good today. I will order an x-ray of the shoulder today. I recommended that he use topical medication such as Icy Hot or Voltaren for relief. I offered to send a referral to physical therapy and he agreed. Referral sent to S PT in [place]. He will follow up with me in 4 weeks. 01/21/2025 Essential hypertension (ICD-10 - I10) Blood pressure today: 166/66 Patients goal blood pressure is 140/90 or lower. Well controlled at this time, no medication changes today. Continue on HCTZ, losartan and amlodipine. 09/13/2024 Wellness examination (ICD-10 - Z00.00) Wellness performed today. He recently had blood work done at the hospital. Results were normal, but his kidney functions had slightly decreased so I advised him to try cutting back on NSAIDs. 09/13/2024 Seasonal allergies (ICD-10 - J30.2) Continue on Zyrtec and Flonase PRN. 08/02/2024 Crohn's disease of both small and large intestine with unspecified complications (ICD-10 - K50.819) 03/09/2024 Crohn's disease of ileum without complication (ICD-10 - K50.00) He clinically is doing well now. He did have a flare which may have been an exacerbation of his underlying Crohn's or potentially some infectious process which took longer to resolve as he is on the immunosuppress ants. He is not had documented Crohn's colitis. He has had small bowel disease which has required 2 surgeries and his last colonoscopy showed a focal ulceration at his anastomosis. This would not dramatically increase his risk of colon cancer. Will have him wait until he is age 45 to have another colonoscopy and then depending upon the results at that time determine follow-up. He is agreeable with this plan. Will have him return in 1 year. 09/13/2024 Essential hypertension (ICD-10 - I10) Blood pressure today: 124/62 Patients goal blood pressure is 140/90 or lower. Well controlled at this time, no medication changes today. Advised him to monitor his BP 1-2 times a month. 01/21/2025 Subclinical hypothyroidism (ICD-10 - E03.8) When he was at the ER on 01/12, his TSH levels were high at 7. I will check a full thyroid today. 09/13/2024 Obesity (BMI 30.0-34.9) (ICD-10 - E66.811) His BMI today is 32.06, I encouraged pt to implement a healthy diet and exercise (at least 30min a day) into daily habits. Goal for patient is to loose 1-2lb per week to reach their goal weight. I advised pt to try the mediterranean diet as this implements lean meats like fish and chicken as well as fresh fruits and vegetables. 25-29 overweight 30+ Obese 35+ Morbid 01/21/2025 Palpitations (ICD-10 - R00.2) Intermittent palpitations have been occuring for the past 3 weeks. Episodes of palpitations occur at least once every couple of days. I suggested ordering a heart monitor for 48 hours, and he agreed. He will follow up with me in 4 weeks. 09/13/2024 Crohn's disease of both small and large intestine with unspecified complications (ICD-10 - K50.819) Stable. Continue on Colestipol With Stelara and azathioprine. He follows Dr. Li. 09/13/2024 Crohn's disease of ileum without complication (ICD-10 - K50.00) Stable. Continue on Colestipol With Stelara and azathioprine. He follows Dr. Li. 09/13/2024 Acute right ankle pain (ICD-10 - M25.571) He injured his ankle about 5 years ago and now it is starting to bother him. About 5 years ago, he had imaging and it showed no fractures. I recommended that he try to apply Icy Hot or Voltaren to his ankle. On days when the pain is severe, I recommended that he wear an [employer]or AFO brace to help provide support. 09/13/2024 Other Kirstie, Fanny Nowak, am scribing for, and in the presence of Danish Guardado MD. I, Danish Guardado MD, personally performed the services described in this documentation , as scribed by Fanny Nowak in my presence, and it is both accurate and complete. All patient's questions are encouraged and addressed to their apparent satisfaction. They are agreeable with the proposed plan of care and deny further needs or concerns. I am happy to see patient prior to next office visit as needed for acute concerns. 01/21/2025 Other Kirstie, Fanny Nowak, am scribing for, and in the presence of Danish Guardado MD. I, Danish Guardado MD, personally performed the services described in this documentation , as scribed by Fanny Nowak in my presence, and it is both accurate and complete. All patient's questions are encouraged and addressed to their apparent satisfaction. They are agreeable with the proposed plan of care and deny further needs or concerns. I am happy to see patient prior to next office visit as needed for acute concerns. Plan Of Treatment Pending Test Test Name Order Date Holter x 48 Hour-[id number] 01/21/2025 Future Test Test Name Order Date CBC w\ Auto Diff [id number] 10/30/2024 Comprehensive Metabolic Panel (CMP) 8005 3 10/30/2024 CBC w\ Auto Diff [id number] 01/30/2025 Comprehensive Metabolic Panel (CMP) 8005 3 01/30/2025 Next Appt Details Provider Name:Kelvin Li , 03/08/2025 10:30:00 AM, [address], [place], [address], Provider Name:Nakul Huston cuca, 03/28/2025 10:30:00 AM, [address], [place], [address], Provider Name:Nakul Hsuton cuca, 09/19/2025 01:00:00 PM, [address], [place], [address], Insurance Providers Payer Name Payer Address Payer Phone Subscriber Number Group Number Insured Name Patient Relationship to Insured Coverage Start Date Coverage End Date Web TPA Martinez [address] [place] [phone] [id number] 2018 [facility] MANUELA GIPSON Self - patient is the insured Medical (General) History Medical History History ICD Code HIGH Blood pressure crohns Chicken Pox Arthritis High Blood Pressure Crohn's Disease Surgical History Surgery Date(Month/Year) 2 bowel resections vasectomy 2011 Hospitalization History Reason Date(Month/Year) see surgeries
[2025-03-04 21:35] VITALS: BP 139/76; PULSE 114; RESP 20; O2SAT 97; BMI 28.3
--- NOTE | 2025-03-04 21:48 | CTR_ITS ---
PROCEDURE INFORMATION: Exam: CT Head Without Contrast Exam date and time: 03/04/2025 10:17 PM Age: 44 years old Clinical indication: EMS arrival for seizure TECHNIQUE: Imaging protocol: Computed tomography of the head without contrast. Radiation optimization: All CT scans at this facility use at least one of these dose optimization techniques: automated exposure control; mA and/or kV adjustment per patient size (includes targeted exams where dose is matched to clinical indication); or iterative reconstruction. COMPARISON: No relevant prior studies available. RADIATION DOSE METRICS: Total DLP (mGy-cm): 1115.03 FINDINGS: Brain: Normal. No hemorrhage. Unremarkable white matter. No mass effect. Cerebral ventricles: No ventriculomegaly. Paranasal sinuses: Pansinusitis. Mastoid air cells: Visualized mastoid air cells are well aerated. Bones: Unremarkable. No acute fracture. Soft tissues: Unremarkable. CT/CT head wo con* [id number] IMPRESSION: No acute intracranial abnormality.
[2025-03-04 21:54] LABS: Hematocrit 44.8 % (37-53); Hemoglobin 16.20 g/dL (11.27-16.99); Mean Corpuscular HGB Conc 36.2 g/dL (30-55); Mean Corpuscular Hemoglobin 30.7 pg (27-33); Mean Corpuscular Volume 85.0 fl (82-101); Nucleated Red Blood Cells % 0 %; Platelet Count 233 10^3/cmm (157-399); Red Blood Count 5.27 10^6/uL (3.85-5.65); White Blood Count 8.84 10^3/uL (3.29-11.43)
--- NOTE | 2025-03-04 22:00 | PC.NURSE ---
seizure pads placed on stretcher rails.
[2025-03-04 22:08] LABS: Alanine Aminotransferase 30 U/L (0-41); Albumin Level 4.7 g/dL (3.5-5.2); Alkaline Phosphatase 82 U/L (40-130); Anion Gap 30.5 (5-19); Aspartate Amino Transferase 24 U/L (0-40); Blood Urea Nitrogen 14 mg/dL (6-20); Calcium 9.7 mg/dL (8.5-10.5); Carbon Dioxide 14 mmol/L (22-29); Chloride 96 mmol/L (98-107); Creatinine Clr Calc Pharmacy 79.2369; Globulin 2.7 g/dL (1.3-4.6); Glucose 94 mg/dL (65-115); Osmolality Calculated 284 mOsm/kg (285-295); Potassium 3.5 mmol/L (3.5-5.1); Sodium 137 mmol/L (136-145); Total Protein 7.4 g/dL (6.6-8.7)
[2025-03-04] MEDS: levETIRAcetam 1,000 MG/100 ML PREMIX 400 MG IV (22:35)
--- NOTE | 2025-03-04 22:51 | ED_ITS ---
HPI - Seizure 2 General: Chief Complaint: Seizure Stated Complaint: Seizure Time Seen by Provider: 03/04/25 21:39 History of Present Illness: HPI Narrative: Patient presents emerged department after a witnessed seizure. He has a history of 1 seizure about 7 years ago and has never had a seizure since then. He states tonight he was outside playing with his children and his noticed that he was having a grand mal seizure. She was able to get into the ground safely. He did bite the left side of his tongue and he does have some abrasions on his hands and feet. He is otherwise back to his normal baseline mentation now. He did take seizure medications about a year and a half after his initial seizure but has not been on any since then. Related Data Home Medications ?Medication ?Instructions ?Recorded ?Confirmed azathioprine 50 mg tablet 50 mg PO DAILY 06/19/2206/01 ustekinumab 90 mg/mL subcutaneous syringe SUBCUT 06/1906/19/22 syringe (Stelara) Previous Rx's ?Medication ?Instructions ?Recorded amlodipine 10 mg tablet 10 mg PO DAILY 90 days #90 t abs 06/19/22 amoxicillin 875 mg-potassium 1 tab PO BID #20 tabs clavulanate 125 mg tablet hydrochlorothiazide 25 mg tablet 25 mg PO DAILY 90 day s #90 tabs 06/19/22 losartan 25 mg tablet 25 mg PO DAILY #90 tabs 06/02 levetiracetam 500 mg tablet 500 mg PO BID 4 weeks #56 tabs 03/04/25 (Keppra) Allergies Allergy/AdvReac Type Severity Reaction Status Date / Time infliximab (From Remicade) Allergy ALGY-Joint Verified 06/19/22 14:26 Pain PFSH ED 2 PFSH: Medical History (Updated 03/04/25 @ 22:47 by Adolfo Powell MD) Crohn's disease Surgical History History of bowel resection Social History Smoking and tobacco/nicotine status: former use of tobacco/nicotine Physical Exam 2 Const: COMMON NORMALS: patient oriented x3 HENMT: OTHER: Small tongue bite of the left side of the tongue. Neck/C-Spine: COMMON NORMALS: no JVD Resp: COMMON NORMALS: normal respiratory effort, No retractions, No use of accessory muscles, clear to auscultation bilaterally and percussion normal A USCULTATION: clear to auscultation bilaterally PERCUSSION: percussion normal Cardio: COMMON NORMALS: no JVD, regular rate, regular rhythm, S1 normal heart sound present, S2 normal heart sound present, No gallops present (Cardio), No clicks present (Cardio), No murmurs present (Cardio), No rub (Cardio) and Peripheral pulses 2+ throughout RATE: regular rate RHYTHM: regular rhythm HEART SOUNDS: S1 normal heart sound present and S2 normal heart sound present PERIPHERAL PULSES: Peripheral pulses 2+ throughout GI: COMMON NORMALS: Normal to inspection, nondistended, normoactive bowel sounds present, Soft to palpation, non-tender, No hepatosplenomegaly present, no masses and no bruits PALPATION: Yes Soft to palpation and Yes No hepatosplenomegaly present Neuro: COMMON NORMALS: patient oriented x3, CN's II-XII intact bilaterally, moves all extremities, no focal motor deficits and no sensory deficits noted Skin: OTHER: Abrasions on the medial aspects of both feet and of the right hand Course 2 Vital Signs: Vital signs: Vital Signs Pulse Rate 114 H 03/04/25 21:35 Respiratory Rate 20 H 03/04/25 21:35 Blood Pressure 139/76 03/04/25 21:35 Pulse Oximetry 97 03/04/25 21:35 MDM - Seizure MDM Narrative Medical decision making narrative: Patient with a seizure tonight that was witnessed as a grand mal. Has no significant abnormality noted on labs or imaging. Head CT is negative. Patient given IV Keppra here. Will discharge home with Keppra and referral to see neurology. Lab Data 03/04/25 21:46 03/04/25 21:46 Labs: Radiology Impressions Head CT 03/04/25 21:48 IMPRESSION: No acute intracranial abnormality. Laboratory Results WBC 8.84 10^3/uL (3.29-11.43) 03/04/25 21:46 RBC 5.27 10^6/uL (3.85-5.65) 03/04/25 21:46 Hgb 16.20 g/dL (11.27-16.99) 03/04/25 21:46 Hct 44.8 % (37-53) 03/04/25 21:46 MCV 85.0 fl (82-101) 03/04/25 21:46 MCH 30.7 pg (27-33) 03/04/25 21:46 MCHC 36.2 g/dL (30-55) 03/04/25 21:46 RDW 12.0 % (12.1-15.1) L 03/04/25 21:46 Plt Count 233 10^3/cmm (157-399) 03/04/25 21:46 MPV 10.0 fL (7.4-10.4) 03/04/25 21:46 Neut % (Auto) 49.3 % 03/04/25 21:46 Lymph % (Auto) 32.2 % 03/04/25 21:46 Daggett % (Auto) 10.2 % 03/04/25 21:46 Eos % (Auto) 6.2 % 03/04/25 21:46 Baso % (Auto) 0.6 % 03/04/25 21:46 Neut # (Auto) 4.36 10^3/uL (1.8-7.7) 03/04/25 21:46 Lymph # (Auto) 2.9 10^3/uL (0.8-4.8) 03/04/25 21:46 Daggett # (Auto) 0.9 10^3/uL (0.2-0.9) 03/04/25 21:46 Eos # (Auto) 0.6 10^3/uL (0.0-0.8) 03/04/25 21:46 Baso # (Auto) 0.1 10^3/uL (0.0-0.1) 03/04/25 21:46 Nucleated RBC % (auto) 0 % 03/04/25 21:46 Nucleated RBCs # 0.0 /100WBC 03/04/25 21:46 Sodium 137 mmol/L (136-145) 03/04/25 21:46 Potassium 3.5 mmol/L (3.5-5.1) 03/04/25 21:46 Chloride 96 mmol/L (98-107) L 03/04/25 21:46 Carbon Dioxide 14 mmol/L (22-29) L 03/04/25 21:46 Anion Gap 30.5 (5-19) H 03/04/25 21:46 BUN 14 mg/dL (6-20) 03/04/25 21:46 Creatinine 1.3 mg/dL (0.7-1.2) H 03/04/25 21:46 GFR Calculation 60.0 mL/min (90-130) L 03/04/25 21:46 Glucose 94 mg/dL (65-115) 03/04/25 21:46 Calculated Osmolality 284 mOsm/kg (285-295) L 03/04/25 21:46 Calcium 9.7 mg/dL (8.5-10.5) 03/04/25 21:46 Total Bilirubin 0.5 mg/dL (0.15-1.2) 03/04/25 21:46 AST 24 U/L (0-40) 03/04/25 21:46 ALT 30 U/L (0-41) 03/04/25 21:46 Alkaline Phosphatase 82 U/L (40-130) 03/04/25 21:46 Total Protein 7.4 g/dL (6.6-8.7) 03/04/25 21:46 Albumin 4.7 g/dL (3.5-5.2) 03/04/25 21:46 Globulin 2.7 g/dL (1.3-4.6) 03/04/25 21:46 All radiology interpretation(s) finalized by discharge Discharge Plan Discharge Patient Disposition: Home Clinical Impression: Seizure Condition: Stable Prescriptions: New levetiracetam [Keppra] 500 mg tablet 500 mg PO BID 28 Days Qty: 56 0RF No Action hydrochlorothiazide 25 mg tablet 25 mg PO DAILY 90 Days Qty: 90 0RF amlodipine 10 mg tablet 10 mg PO DAILY 90 Days Qty: 90 0RF azathioprine 50 mg tablet 50 mg PO DAILY Stelara 90 mg/mL syringe SUBCUT amoxicillin-pot clavulanate 875-125 mg tablet 1 tab PO BID Qty: 20 0RF losartan 25 mg tablet 25 mg PO DAILY Qty: 90 3RF Discharge Orders: Discharge ED (Routine); Ordered 03/04/25 Ordered By: Adolfo Powell Referrals: gocio [Other] Jose Dominguez, [facility] [Primary Care Provider, Family Practice] KATE ZARAGOZA MD [Occupational Therapist, Neurology] Patient Instructions: Opioid Safety, Pain Management, Patient Portal & Shari Instructions Print Language: Namibian Coding Level of Care Code ED Information Systems Administrator for Thaddeus Connolly
[2025-03-04 23:56] VITALS: BP 119/72; PULSE 83; RESP 20; O2SAT 95
== END 2025-03-05 | disposition home or self-care (01) ==
PROVIDERS: Emergency Provider Emergency Medicine; PCP Clinical Nurse Specialist Adult Health
DX: R56.9 Unspecified convulsions (principal); Z87.891 Personal history of nicotine dependence
CPT/HCPCS: 70450; 80053; 85025; 96374; 96375; 99285; J1885; J1953; J7030